=== PATIENT | female | born 2000 | race Caucasian/White ===

== ENCOUNTER 2021-06-02 23:47 | Emergency (ER) | payer BC ==
[2021-06-03 00:20] LABS: Actual Bicarbonate (HCO3v) 21 mEq/L (22-28); Analyzer IN Cardio ER; Calcium, Ionized (venous) 1.17 mmol/L (1.16-1.32); Chloride (VBG) 106 mmol/L (98-106); Hemoglobin (Hb) 13.2 g/dL (11.7-15.5); Potassium (VBG) 2.86 mmol/L (3.70-5.30); Sodium 139.2 mmol/L (133-146)
== END 2021-06-03 02:31 | disposition home or self-care (01) ==
LOC: ERS 23:47
DX: F10.129 Alcohol abuse with intoxication, unspecified (principal); F12.10 Cannabis abuse, uncomplicated; R11.2 Nausea with vomiting, unspecified; E11.9 Type 2 diabetes mellitus without complications
CPT/HCPCS: 36416; 82805; 99284